=== PATIENT | female | born 2000 | race Hispanic/Latino ===

== ENCOUNTER 2024-05-20 10:16 | Emergency (ER) | payer OTHER ==
[~2024-05-20] VITALS: Ht 165.1 cm; Wt 97.5 kg
[~2024-05-20 10:16] MED LIST: DICYCLOMINE HCL20 MG PO; ONDANSETRON ODT4 MG PO
[2024-05-20 10:20] VITALS: PULSE 76; RESP 18; TEMP 98.5; O2SAT 100
== END 2024-05-20 14:30 | disposition home or self-care (01) ==
LOC: ER 10:38
DX: M79.642 Pain in left hand (principal); M25.512 Pain in left shoulder; S80.02XA Contusion of left knee, initial encounter; V43.52XA Car driver injured in collision with other type car in traffic accident, initial encounter; Y92.488 Other paved roadways as the place of occurrence of the external cause
CPT/HCPCS: 71045; 99283